=== PATIENT | male | born 1940 | race Asian ===

== ENCOUNTER 2019-01-08 16:51 | Inpatient (IN) | payer OTHER ==
[~2019-01-08] VITALS: Ht 141 cm; Wt 78.5 kg
[2019-01-08 18:45] VITALS: BP 176/86; PULSE 81; RESP 16
[2019-01-08 20:00] VITALS: BP 160/74; PULSE 89; RESP 18
[2019-01-08] MEDS ORDERED: AMLO5TAB4 PO (20:40)
[2019-01-08] MEDS ORDERED: ONDANSETRON 4 MG INJ IV PRN (22:30)
[2019-01-08] MEDS ORDERED: ALBUTEROL/IPRATROPIUM (NEB) 3 ML AMP HHN PRN (22:30)
[2019-01-08] MEDS ORDERED: NACL 0.9% 3 ML SYG IV SCH (22:30)
[2019-01-08] MEDS ORDERED: VANCOMYCIN IV PER PHARMACY XX SCH (22:30)
[2019-01-08] MEDS ORDERED: ACETAMINOPHEN 325 MG TAB PO PRN (22:30)
[2019-01-09] MEDS: ACYCLOVIR 500 MG in DEXTROSE 5% 100 ML IVPB SCH ×4 (00:29→21:42)
[2019-01-09] MEDS ORDERED: VANCOMYCIN HCL 1.5 GM in SOD CHLORIDE 0.9% 250 ML IVPB ONE (01:00)
[2019-01-09 01:26] VITALS: BP 147/70; PULSE 89; RESP 18
--- NOTE | 2019-01-09 06:25 | HP ---
Date/Time of Note Date/Time of Note DATE: 01/09/19 TIME: : Assessment/Plan VTE Prophylaxis Risk score (from Ns)>0 risk: 3 SCD applied (from Ns): Yes Pharmacological prophylaxis: other Lines/Catheters IV Catheter Type (from Nrsg): Peripheral IV Assessment/Plan Assessment/Plan 1. Right periorbital infection/swelling, secondary to shingles was likely superimposed bacterial cellulitis -Patient was evaluated by ophthalmology prior to transfer to [facility] who documented that no corneal involvement and a normal optic nerve exam -will continue acyclovir and vancomycin per recommendation -will culture -ID consult 2. Hypertension: Continue Norvasc. Adjust as needed HPI/ROS Admit Date/Time Admit Date/Time January 08, 2019 at 18:45 Hx of Present Illness This is a 78-year-old male with a history of hypertension and BPH who initially presented to an outside hospital complaining of right eye swelling and pain. Patient was initially seen [facility] 2 days ago and was given erythromycin ointment and Keflex. He was then seen by ophthalmology who started him on acyclovir for likely shingles. Patient went to [place] yesterday. CT shows moderate right periorbital soft tissue swelling. He was evaluated by ophthalmology who also felt that this was from shingles. They also documented saying that no corneal involvement and a normal optic nerve exam. He was treated with acyclovir and vancomycin. Patient was transferred to [facility] for insurance reason. PMH/Family/Social Past Medical History Past Medical History Medical History: other (See HPI) Past Surgical History Past Surgical Hx: other (See HPI) Family History Significant Family History: no pertinent family hx Social History Alcohol Use: none Smoking Status: Never smoker Drug Use: none Exam Constitutional: alert, oriented, well developed Head: normocephalic, atraumatic Eyes: EOMI, PERRL Respiratory: clear to auscultation, normal air movement Cardiovascular: regular rate and rhythm, nl pulses Gastrointestinal: soft, non-tender Extremities: normal pulses Medications Current Medications IV Flush (NS 3 ml) 3 ml PER PROTOCOL IV ; Start 01/08/19 at 22:30 Ondansetron HCl (Zofran Inj) 4 mg Q6H PRN IV NAUSEA/VOMITING; Start 01/08/19 at 22:30 Acetaminophen (Tylenol Tab) 650 mg Q6H PRN PO .PAIN 1-3 OR TEMP; Start 01/08/19 at 22:30 Albuterol/ Ipratropium (Duoneb) 3 ml Q2H RESP THERAPY PRN HHN SHORTNESS OF BREATH; Start 01/08/19 at 22:30 Acyclovir 500 mg/ Dextrose 100 ml @ 100 mls/hr Q8 IVPB Last administered on 01/09/19at 05:43; Admin Dose 100 MLS/HR; Start 01/08/19 at 22:30 Vancomycin HCl (Vanco Iv Per Pharmacy) VANCOMYCIN PER PHARMACY PER PROTOCOL XX ; Start 01/08/19 at 22:30 Amlodipine Besylate (Norvasc) 5 mg DAILY PO ; Start 01/09/19 at 09:00 Coded Allergies: No Known Allergy (Unverified , 01/08/19) Social History Smoking Status: Current every day smoker Exam/Review of Systems Vital Signs Vitals Vital Signs Date Temp Pulse Resp B/P (MAP) Pulse Ox O2 O2 Flow FiO2 Time Delivery Rate 01/09/19 97.8 89 18 147/70 97 Room Air 01:26 (95) Intake and Output 01/08/19 01/08/19 01/09/19 1515:00 23:00 07:00 IntakeIntake Total 120 ml 100 ml BalanceBalance 120 ml 100 ml MACK OCONNELL MD January 09, 2019 06:24
[2019-01-09 07:30] VITALS: BP 139/73; PULSE 87; RESP 16
[2019-01-09] MEDS: AMLODIPINE 5 MG TAB PO SCH (09:41)
[2019-01-09] MEDS: AMPICILLIN/SULB 3 GM/NS (PMX) 100 ML IVPB SCH ×2 (11:20→16:00)
[2019-01-09] MEDS ORDERED: ARTIFICIAL TEARS 15 ML OPH BOTH EYES PRN (13:00)
--- NOTE | 2019-01-09 13:04 | PN ---
Date/Time of Note Date/Time of Note DATE: 01/09/19 TIME: 13:02 Assessment/Plan VTE Prophylaxis Risk score (from Ns)>0 risk: 4 SCD applied (from Ns): Yes Pharmacological prophylaxis: NA/contraindicated Pharm contraindication: low risk/ambulating Lines/Catheters IV [facility] Type [facility]from [facility] Peripheral IV Urinary Cath still in place: No Assessment/Plan Hospital Course SUBJECTIVE: Patient with no acute discomfort. He continues to have right orbital edema but no pain. Conjunctiva is red. OBJECTIVE: Vital signs-see below PHYSICAL EXAM: Constitutional: Adequately built,not in acute distress. HEENT: Head atraumatic and normocephalic. Eyes: Significant periorbital/UPPER LOWER EYE LID edema.Conjunctival redness/pus.DIANA.no diplopia/visual field impairment. Herpetic lesion on rt forehead. NECK: Supple without lymph node. CHEST: Clear and good breath sounds equally. No wheezing. No rhonchi. HEART: S1, S2. Regular rate and rhythm. ABDOMEN: Soft/non tender with no rebound tenderness. Bowel sounds were present. EXTREMITIES: No cyanosis, clubbing or edema. NEUROLOGIC: Alert and oriented x3. No focal deficit. No sensory deficit. PSYCHOSOCIAL: No signs of depression. INTEGUMENTARY: No open wounds. ASSESSMENT AND PLAN:78 yo M w/htn transferred from outside hospital for inpatient management of shingles and periorbital edema involving right eye.. Shingles V1 -No vision impairment -s/p ophthalmology evaluation with no corneal involvement identified. -Eyedrops with addition of moxifloxacin secondary to superficial bacterial infection -Acyclovir/antibiotics for superficial bacterial infection -ID consult -HSV lab -Isolation Preseptal cellulitis/sinusitis 2/2 shingles -Patient with significant periorbital edema, will try prednisone 80 mg no tape ring course -Continue unasyn - CT from outside hospital noted Hypertension -Adequately controlled with calcium channel fatimah Dyslipidemia -Diet changes advised with repeat labs as outpatient. DVT prophylaxis: SCDs/ambulation Disposition: Continue current management. Await for clinical improvement. Patient was seen in collaboration with Result Diagram: 01/09/19 0716 01/09/19 0716 Results 24hrs Laboratory Tests Test 01/09/19 07:16 White Blood Count 7.5 Red Blood Count 5.08 Hemoglobin 16.1 Hematocrit 46.5 Mean Corpuscular Volume 91.5 Mean Corpuscular Hemoglobin 31.7 Mean Corpuscular Hemoglobin Concent 34.6 Red Cell Distribution Width 11.9 Platelet Count 208 Mean Platelet Volume 8.5 Immature Granulocytes % 0.100 Neutrophils % Segmented Neutrophils % (Manual) 39 Band Neutrophils % (Manual) 5 H Lymphocytes % Lymphocytes % (Manual) 42 Reactive Lymphocytes % (Manual) 3 H Monocytes % Monocytes % (Manual) 9 Eosinophils % Eosinophils % (Manual) 1 Basophils % Basophils % (Manual) 1 Nucleated Red Blood Cells % 0.0 Immature Granulocytes # 0.010 Neutrophils # Neutrophils # (Manual) 2.9 Band Neutrophils # 0.3 Lymphocytes (Manual) 3.1 H Lymphocytes # Reactive Lymphocytes # 0.2 H Monocytes # Monocytes # (Manual) 0.6 Eosinophils # Basophils # Basophils # (Manual) 0.0 Nucleated Red Blood Cells # Platelet Estimate NORMAL Anisocytosis 1+ Macrocytosis 1+ Sodium Level 139 Potassium Level 3.9 Chloride Level 99 Carbon Dioxide Level 32 H Anion Gap 8 Blood Urea Nitrogen 12 Creatinine 1.08 Est Glomerular Filtrat Rate mL/min Glucose Level 110 Hemoglobin A1c 5.6 Calcium Level 8.8 Phosphorus Level 3.3 Magnesium Level 2.3 Total Bilirubin 0.7 Direct Bilirubin 0.00 Indirect Bilirubin 0.7 Aspartate Amino Transf (AST/SGOT) 43 Alanine Aminotransferase (ALT/SGPT) 30 Alkaline Phosphatase 53 Total Protein 7.8 Albumin 4.2 Globulin 3.60 H Albumin/Globulin Ratio 1.16 Triglycerides Level 143 Cholesterol Level 216 H LDL Cholesterol, Calculated 152 HDL Cholesterol 35 Cholesterol/HDL Ratio 6.1 Exam/Review of Systems Exam Vitals Vital Signs Date Temp Pulse Resp B/P (MAP) Pulse Ox O2 O2 Flow FiO2 Time Delivery Rate 01/09/19 99.2 87 16 139/73 95 Room Air 07:30 (95) Intake and Output 01/08/19 01/08/19 01/09/19 1515:00 23:00 07:00 IntakeIntake Total 120 ml 220 ml BalanceBalance 120 ml 220 ml Results Results 24hrs Laboratory Tests Test 01/09/19 07:16 White Blood Count 7.5 Red Blood Count 5.08 Hemoglobin 16.1 Hematocrit 46.5 Mean Corpuscular Volume 91.5 Mean Corpuscular Hemoglobin 31.7 Mean Corpuscular Hemoglobin Concent 34.6 Red Cell Distribution Width 11.9 Platelet Count 208 Mean Platelet Volume 8.5 Immature Granulocytes % 0.100 Neutrophils % Segmented Neutrophils % (Manual) 39 Band Neutrophils % (Manual) 5 H Lymphocytes % Lymphocytes % (Manual) 42 Reactive Lymphocytes % (Manual) 3 H Monocytes % Monocytes % (Manual) 9 Eosinophils % Eosinophils % (Manual) 1 Basophils % Basophils % (Manual) 1 Nucleated Red Blood Cells % 0.0 Immature Granulocytes # 0.010 Neutrophils # Neutrophils # (Manual) 2.9 Band Neutrophils # 0.3 Lymphocytes (Manual) 3.1 H Lymphocytes # Reactive Lymphocytes # 0.2 H Monocytes # Monocytes # (Manual) 0.6 Eosinophils # Basophils # Basophils # (Manual) 0.0 Nucleated Red Blood Cells # Platelet Estimate NORMAL Anisocytosis 1+ Macrocytosis 1+ Sodium Level 139 Potassium Level 3.9 Chloride Level 99 Carbon Dioxide Level 32 H Anion Gap 8 Blood Urea Nitrogen 12 Creatinine 1.08 Est Glomerular Filtrat Rate mL/min Glucose Level 110 Hemoglobin A1c 5.6 Calcium Level 8.8 Phosphorus Level 3.3 Magnesium Level 2.3 Total Bilirubin 0.7 Direct Bilirubin 0.00 Indirect Bilirubin 0.7 Aspartate Amino Transf (AST/SGOT) 43 Alanine Aminotransferase (ALT/SGPT) 30 Alkaline Phosphatase 53 Total Protein 7.8 Albumin 4.2 Globulin 3.60 H Albumin/Globulin Ratio 1.16 Triglycerides Level 143 Cholesterol Level 216 H LDL Cholesterol, Calculated 152 HDL Cholesterol 35 Cholesterol/HDL Ratio 6.1 Medications Medication Current Medications IV Flush (NS 3 ml) 3 ml PER PROTOCOL IV ; Start 01/08/19 at 22:30 Ondansetron HCl (Zofran Inj) 4 mg Q6H PRN IV NAUSEA/VOMITING; Start 01/08/19 at 22:30 Acetaminophen (Tylenol Tab) 650 mg Q6H PRN PO .PAIN 1-3 OR TEMP; Start 01/08/19 at 22:30 Albuterol/ Ipratropium (Duoneb) 3 ml Q2H RESP THERAPY PRN HHN SHORTNESS OF BR EATH; Start 01/08/19 at 22:30 Acyclovir 500 mg/ Dextrose 100 ml @ 100 mls/hr Q8 IVPB Last administered on 01/09/19at 05:43; Admin Dose 100 MLS/HR; Start 01/08/19 at 22:30 Vancomycin HCl (Vanco Iv Per Pharmacy) VANCOMYCIN PER PHARMACY PER PROTOCOL XX ; Start 01/08/19 at 22:30 Amlodipine Besylate (Norvasc) 5 mg DAILY PO Last administered on 01/09/19at 09:41; Admin Dose 5 MG; Start 01/09/19 at 09:00 Ampicillin Sodium/ Sulbactam Sodium 100 ml @ 100 mls/hr Q8H IVPB Last administered on 01/09/19at 11:20; Admin Dose 100 MLS/HR; Start 01/09/19 at 09:00 RONAK JOY NP January 09, 2019 13:04
[2019-01-09] MEDS: predniSONE 20 MG TAB PO SCH (13:46)
[2019-01-09] MEDS: ERYTHROMYCIN 2% 60 ML TOPICAL SOL TOP SCH ×2 (14:00→21:00)
[2019-01-09 14:10] VITALS: BP 163/77; PULSE 81; RESP 16
[2019-01-09] MEDS: MOXIFLOXACIN 0.5% 3 ML OPH RIGHT EYE SCH ×2 (16:00→21:42)
--- NOTE | 2019-01-09 19:58 | PN ---
DATE: 01/08/2019 TYPE OF CONSULTATION: Infectious disease. REQUESTING PHYSICIAN: Gilma Rodriguez NP Thank you Gilma for this consultation. HISTORY OF PRESENT ILLNESS: This is a 78-year-old man who was admitted with periorbital swelling, drainage and lesions extending up to his head line on the right. Per report, he was seen by ophthalmology prior to transferring to [facility]. There was no documented corneal involvement and there was a normal optical nerve exam. The patient is currently on oral prednisone, Unasyn, acyclovir and vancomycin. He is also getting Vigamox eyedrops and artificial tears. PAST MEDICAL HISTORY: Significant for hypertension, dyslipidemia and chronic tobacco use. SOCIAL HISTORY: No illicits. No alcohol. REVIEW OF SYSTEMS: As per history of present illness. PHYSICAL EXAMINATION: GENERAL: This is well-nourished, well-developed elderly man who is alert, in no distress. HEENT: Head atraumatic, normocephalic. The patient has right eyelid and periorbital swelling. He unable to open eye, but does not have any pain. He does have crusting lesions extending from his eyebrow up to his head. Buccal mucosa dry, no oral lesions. NECK: Supple. CHEST: Rise symmetrical. Breath sounds clear. HEART: S1, S2. ABDOMEN: Soft, bowel sounds present. EXTREMITIES: Without cyanosis. DIAGNOSTIC IMPRESSION: This is a 78-year-old man admitted with right facial herpes zoster with possible superimposed cellulitis. He was evaluated by ophthalmology already. It does not appear that he has herpes ophthalmicus. He is on appropriate antibiotic regimen which we will continue for now. Await for clinical improvement. Discussed with Dr. Still who is covering for Dr. Toledo. Dictated By: GWENDOLYN ADAMS LEGAL ADVISOR for [employer] Conf#: [id number] DID#: [id number] MTDJanice
[2019-01-09 20:00] VITALS: BP 166/73; PULSE 83; RESP 18
[2019-01-10] MEDS: AMPICILLIN/SULB 3 GM/NS (PMX) 100 ML IVPB SCH ×3 (01:42→16:53)
[2019-01-10 02:00] VITALS: BP 160/71; PULSE 80; RESP 19
[2019-01-10] MEDS: VANCOMYCIN HCL 1.5 GM in SOD CHLORIDE 0.9% 250 ML IVPB SCH (03:52)
[2019-01-10] MEDS: ACYCLOVIR 500 MG in DEXTROSE 5% 100 ML IVPB SCH ×3 (06:24→22:06)
[2019-01-10 08:00] VITALS: BP 172/80; PULSE 79; RESP 20
[2019-01-10] MEDS: AMLODIPINE 5 MG TAB PO SCH (08:54)
[2019-01-10] MEDS: predniSONE 20 MG TAB PO SCH (08:54)
[2019-01-10] MEDS: MOXIFLOXACIN 0.5% 3 ML OPH RIGHT EYE SCH ×3 (08:54→20:54)
[2019-01-10 09:30] VITALS: BP 163/75; PULSE 65; RESP 19
[2019-01-10] MEDS ORDERED: AMLODIPINE 5 MG TAB PO ONE (12:00)
[2019-01-10 12:28] VITALS: BP 172/69
[2019-01-10] MEDS: ERYTHROMYCIN 2% 60 ML TOPICAL SOL TOP SCH ×2 (12:30→21:05)
--- NOTE | 2019-01-10 12:36 | PN ---
Date/Time of Note Date/Time of Note DATE: 01/10/19 TIME: 12:31 Assessment/Plan VTE Prophylaxis Risk score (from Ns)>0 risk: 4 SCD applied (from Ns): Yes Pharmacological prophylaxis: NA/contraindicated Pharm contraindication: low risk/ambulating Lines/Catheters IV [facility] Saline Lock Urinary Cath still in place: No Assessment/Plan Hospital Course SUBJECTIVE: Patient with significant improvement in upper/lower eyelid swelling. Patient with no vision changes. No diplopia. OBJECTIVE: Vital signs-see below PHYSICAL EXAM: Constitutional: Adequately built,not in acute distress. HEENT: Head atraumatic and normocephalic. Eyes: Significant periorbital/UPPER LOWER EYE LID edema-RESOLVING.Conjunctival redness/pus.DIANA.no diplopia/visual field impairment. Herpetic lesion on rt forehead. NECK: Supple without lymph node. CHEST: Clear and good breath sounds equally. No wheezing. No rhonchi. HEART: S1, S2. Regular rate and rhythm. ABDOMEN: Soft/non tender with no rebound tenderness. Bowel sounds were present. EXTREMITIES: No cyanosis, clubbing or edema. NEUROLOGIC: Alert and oriented x3. No focal deficit. No sensory deficit. PSYCHOSOCIAL: No signs of depression. INTEGUMENTARY: No open wounds. ASSESSMENT AND PLAN:78 yo M w/htn transferred from outside hospital for inpatient management of shingles and periorbital edema involving right eye.. Shingles V1/HSVII -Significant clinical improvement -No vision impairment -s/p ophthalmology evaluation with no corneal involvement identified. -Continue Vigamox eyedrops/acyclovir/antibiotics for superficial bacterial infection -ID consult -HSV lab -Isolation Preseptal cellulitis/sinusitis 2/2 shingles -Patient with significant periorbital edema W/steroid course we will continue for a total 7-day course -Continue [id number] soon Hypertension -This more control. Will increase amlodipine to 10 mg. Dyslipidemia -Diet changes advised with repeat labs as outpatient. DVT prophylaxis: SCDs/ambulation Disposition: Overall patient with significant clinical improvement. Right eyelid swelling is resolving. Continue current regimen with de-escalation of antibiotic and DC planning in 24 hours. Patient was seen in collaboration with Result Diagram: 01/09/19 0716 01/09/19 0716 Exam/Review of Systems Exam Vitals Vital Signs Date Temp Pulse Resp B/P (MAP) Pulse Ox O2 O2 Flow FiO2 Time Delivery Rate 01/10/19 98.6 80 19 160/71 96 02:00 (100) 01/09/19 Room Air 14:10 Intake and Output 01/09/19 01/09/19 01/10/19 1515:00 23:00 07:00 IntakeIntake Total 740 ml 550 ml 350 ml OutputOutput Total 600 ml BalanceBalance 740 ml -50 ml 350 ml Medications Medication Current Medications IV Flush (NS 3 ml) 3 ml PER PROTOCOL IV ; Start 01/08/19 at 22:30 Ondansetron HCl (Zofran Inj) 4 mg Q6H PRN IV NAUSEA/VOMITING; Start 01/08/19 at 22:30 Acetaminophen (Tylenol Tab) 650 mg Q6H PRN PO .PAIN 1-3 OR TEMP; Start 01/08/19 at 22:30 Albuterol/ Ipratropium (Duoneb) 3 ml Q2H RESP THERAPY PRN HHN SHORTNESS OF BREATH; Start 01/08/19 at 22:30 Acyclovir 500 mg/ Dextrose 100 ml @ 100 mls/hr Q8 IVPB Last administered on 01/10/19at 06:24; Admin Dose 100 MLS/HR; Start 01/08/19 at 22:30 Vancomycin HCl (Vanco Iv Per Pharmacy) VANCOMYCIN PER PHARMACY PER PROTOCOL XX ; Start 01/08/19 at 22:30 Ampicillin Sodium/ Sulbactam Sodium 100 ml @ 100 mls/hr Q8H IVPB Last administered on 01/10/19at 08:54; Admin Dose 100 MLS/HR; Start 01/09/19 at 09:00 Prednisone (Prednisone) 80 mg DAILY PO Last administered on 01/10/19at 08:54; Admin Dose 80 MG; Start 01/09/19 at 12:30; Stop 01/16/19 at 12:29 Eye Lubricant (Artificial Tears Oph) 2 drop Q6H PRN BOTH EYES DRY EYES; Start 01/09/19 at 13:00 Moxifloxacin HCl (Vigamox) 1 drop TID RIGHT EYE Last administered on 01/10/19at 08:54; Admin Dose 1 DROP; Start 01/09/19 at 14:00 Erythromycin (Erythromycin 2% Topical Cira) 1 applic BID TOP ; Start 01/09/19 at 14:00 Vancomycin HCl 1.5 gm/Sodium Chloride 250 ml @ 83.333 mls/ hr Q24H IVPB Last administered on 01/10/19at 03:52; Admin Dose 83.333 MLS/HR; Start 01/10/19 at 03:00 Amlodipine Besylate (Norvasc) 10 mg DAILY PO ; Start 01/11/19 at 09:00 RONAK JOY NP January 10, 2019 12:36
[2019-01-10 15:29] VITALS: BP 138/61; PULSE 80; RESP 20
--- NOTE | 2019-01-10 16:19 | CONS ---
Assessment/Plan Assessment/Plan Hospital Course (Demo Recall) Patient is alert feels good wounds look much better periorbital swelling also much better patient is able to open right eye. PHYSICAL EXAMINATION: GENERAL: This is well-nourished, well-developed elderly man who is alert, in no distress. HEENT: Head atraumatic, normocephalic. The patient has right eyelid and periorbital swelling. He unable to open eye, but does not have any pain. He does have crusting lesions extending from his eyebrow up to his head. Buccal mucosa dry, no oral lesions. NECK: Supple. CHEST: Rise symmetrical. Breath sounds clear. HEART: S1, S2. ABDOMEN: Soft, bowel sounds present. EXTREMITIES: Without cyanosis. Assessment: Facial herpes zoster with superimposed cellulitis Plan: Slowly improving, anticipate discharge on oral acyclovir for 7-10 more days with eyedrops as prescribed per ophthalmology Consultation Date/Type/Reason Admit Date/Time January 08, 2019 at 18:45 Initial Consult Date Type of Consult id Date/Time of Note DATE: 01/10/19 TIME: 16:18 Exam/Review of Systems Exam Vitals Vital Signs Date Temp Pulse Resp B/P (MAP) Pulse Ox O2 O2 Flow FiO2 Time Delivery Rate 01/10/19 98.0 80 20 138/61 96 15:29 (86) 01/09/19 Room Air 14:10 Intake and Output 01/09/19 01/09/19 01/10/19 1515:00 23:00 07:00 IntakeIntake Total 740 ml 550 ml 350 ml OutputOutput Total 600 ml BalanceBalance 740 ml -50 ml 350 ml Results Result Diagram: 01/09/19 0716 01/09/19 0716 Medications Medication Current Medications IV Flush (NS 3 ml) 3 ml PER PROTOCOL IV ; Start 01/08/19 at 22:30 Ondansetron HCl (Zofran Inj) 4 mg Q6H PRN IV NAUSEA/VOMITING; Start 01/08/19 at 22:30 Acetaminophen (Tylenol Tab) 650 mg Q6H PRN PO .PAIN 1-3 OR TEMP; Start 01/08/19 at 22:30 Albuterol/ Ipratropium (Duoneb) 3 ml Q2H RESP THERAPY PRN HHN SHORTNESS OF BREATH; Start 01/08/19 at 22:30 Acyclovir 500 mg/ Dextrose 100 ml @ 100 mls/hr Q8 IVPB Last administered on 01/10/19 14:23; Admin Dose 100 MLS/HR; Start 01/08/19 at 22:30 Vancomycin HCl (Vanco Iv Per Pharmacy) VANCOMYCIN PER PHARMACY PER PROTOCOL XX ; Start 01/08/19 at 22:30 Ampicillin Sodium/ Sulbactam Sodium 100 ml @ 100 mls/hr Q8H IVPB Last admin istered on 01/10/19 08:54; Admin Dose 100 MLS/HR; Start 01/09/19 at 09:00 Prednisone (Prednisone) 80 mg DAILY PO Last administered on 01/10/19 08:54; Admin Dose 80 MG; Start 01/09/19 at 12:30; Stop 01/16/19 at 12:29 Eye Lubricant (Artificial Tears Oph) 2 drop Q6H PRN BOTH EYES DRY EYES; Start 01/09/19 at 13:00 Moxifloxacin HCl (Vigamox) 1 drop TID RIGHT EYE Last administered on 01/10/19at 12:29; Admin Dose 1 DROP; Start 01/09/19 at 14:00 Erythromycin (Erythromycin 2% Topical Cira) 1 applic BID TOP Last administered on 01/10/19 12:30; Admin Dose 1 APPLIC; Start 01/09/19 at 14:00 Vancomycin HCl 1.5 gm/Sodium Chloride 250 ml @ 83.333 mls/ hr Q24H IVPB Last administered on 01/10/19 03:52; Admin Dose 83.333 MLS/HR; Start 01/10/19 at 03:00 Amlodipine Besylate (Norvasc) 10 mg DAILY PO ; Start 01/11/19 at 09:00 Miscellaneous Information (*Rx Drug Level Order Reminder*) VANCOMYCIN TROUGH AT 0200 0200 ONCE XX ; Start 01/11/19 at 02:00; Stop 01/11/19 at 02:01 GWENDOLYN ADAMS NP January 10, 2019 16:19
[2019-01-10 20:00] VITALS: BP 163/72; PULSE 83; RESP 18
[2019-01-10] MEDS ORDERED: ERYTHROMYCIN 2% 60 ML TOPICAL SOL TOP SCH (22:24)
[2019-01-11] MEDS: AMPICILLIN/SULB 3 GM/NS (PMX) 100 ML IVPB SCH ×3 (01:05→17:02)
[2019-01-11 02:00] VITALS: BP 150/69; PULSE 81; RESP 17
[2019-01-11] MEDS: VANCOMYCIN HCL 1.5 GM in SOD CHLORIDE 0.9% 250 ML IVPB SCH (03:10)
[2019-01-11] MEDS: ACYCLOVIR 500 MG in DEXTROSE 5% 100 ML IVPB SCH ×2 (06:14→13:03)
[2019-01-11 08:00] VITALS: BP 157/71; PULSE 54; RESP 20
[2019-01-11] MEDS: predniSONE 20 MG TAB PO SCH (08:14)
[2019-01-11] MEDS: MOXIFLOXACIN 0.5% 3 ML OPH RIGHT EYE SCH ×2 (08:16→13:03)
[2019-01-11] MEDS ORDERED: AMLODIPINE 10 MG TAB PO SCH (09:00)
--- NOTE | 2019-01-11 11:02 | PDOCDIS ---
Discharge Instructions CONDITION [id number] Patient Condition: [id number] Stable HOME CARE INSTRUCTIONS: [id number] Diet Instructions: [id number] Regular FOLLOW UP/APPOINTMENTS Follow-up Plan Follow up with primary care physician in 1 week. Patient needs ophthalmology follow-up in 1 week. RONAK JOY NP January 11, 2019 11:02
[2019-01-11] MEDS ORDERED: PRED20TA PO (11:09)
[2019-01-11] MEDS ORDERED: [UNRECOGNIZED DRUG - OTHER] TOP (11:09)
[2019-01-11] MEDS ORDERED: VIGA RIGHT EYE (11:09)
[2019-01-11] MEDS ORDERED: ACYC400T2 PO (11:09)
[2019-01-11] MEDS ORDERED: AMLO-147 PO (11:09)
[2019-01-11] MEDS ORDERED: CIPR500T4 PO (11:09)
--- NOTE | 2019-01-11 11:16 | DS ---
Date/Time of Note Date/Time of Note DATE: 01/11/19 TIME: 11:14 Discharge Summary Admission/Discharge Info Admit Date/Time January 08, 2019 at 18:45 Discharge Date/Time Discharge Diagnosis Shingles V1/HSVII Preseptal cellulitis/sinusitis 2/2 shingles.Resolved Hypertension Dyslipidemia Patient Condition: Stable Consults Dr. Toledo, infectious disease Hospital Course 78 yo M w/htn transferred from outside hospital for inpatient management of shingles and periorbital edema involving right eye..Patient Had ophthalmology evaluation at transferring facility in [facility] with no corneal involvement identified. CT brain was unremarkable other than orbital soft tissue swelling. Serology positive for HSV-2. She did responded well to prednisone 80 mg daily along with Acyclovir and Unasyn. Preseptal cellulitis resolved almost. She is with no vision impairment, diplopia or other symptoms. He has been also given Vigamox eyedrops. Patient was being followed by infectious disease systems management consultant. I cultures grew staph which is sensitive to Cipro. At this time, patient is feeling back to baseline and there is no further swelling on his right eye. Will discharge patient on 7-day acyclovir, Cipro, prednisone weaning course with outpatient PCP follow-up. Hospitalization was also noted for elevated blood pressure requiring titration of his home antihypertensives. Approximately 60-minute was spent on coordinating the discharge on this patient. Home Meds Active Scripts Acyclovir* (Acyclovir*) 400 Mg Tablet, 400 MG PO QID for 7 Days, #28 TAB Prov:JOY,RONAK V. EMBEDDED SOFTWARE ARCHITECT 01/11/19 Ciprofloxacin Hcl* (Ciprofloxacin Hcl*) 500 Mg Tablet, 500 MG PO BID, #14 TAB Prov:JOY,RONAK V. EMBEDDED SOFTWARE ARCHITECT 01/11/19 Erythromycin (ERYTHROMYCIN 2% SOLUTION) 1 Applic Soln, 1 APPLIC TOP BID, #1 TUB Apply to lesions on face Prov:JOY,RONAK V. EMBEDDED SOFTWARE ARCHITECT 01/11/19 Prednisone* (Prednisone*) 20 Mg Tab, 80 MG PO DAILY for 5 Days, #20 TAB Prov:JOY,RONAK V. EMBEDDED SOFTWARE ARCHITECT 01/11/19 Moxifloxacin Hcl* (Vigamox*) 0.5% - 3 Ml Opht, 1 DROP RIGHT EYE TID for 5 Days, #1 BOTTLE Prov:JOY,RONAK V. EMBEDDED SOFTWARE ARCHITECT 01/11/19 Amlodipine Besylate* (Amlodipine Besylate*) 10 Mg Tablet, 10 MG PO DAILY, #30 TAB Prov:RONAK JOY NP 01/11/19 Reported Medications Amlodipine Besylate* (Norvasc*) 5 Mg Tablet, 5 MG PO DAILY, TAB 01/08/19 Follow-up Plan Follow up with primary care physician in 1 week. Primary Care Provider Not On Staff Doctor Pending Labs Laboratory Tests Test 01/11/19 02:19 Vancomycin Level Trough 9.0 ug/ml (10.0-20.0) RONAK JOY NP January 11, 2019 11:16
[2019-01-11 14:00] VITALS: BP 164/58; PULSE 88; RESP 18
[2019-01-11] MEDS ORDERED: VANCOMYCIN 1 GM 250 ML IVPB SCH (15:00)
--- NOTE | 2019-01-11 15:03 | CONS ---
Assessment/Plan Assessment/Plan Hospital Course (Demo Recall) Patient is alert feels better, right eye and facial lesions look much better PHYSICAL EXAMINATION: GENERAL: This is well-nourished, well-developed elderly man who is alert, in no distress. HEENT: Head atraumatic, normocephalic. The patient has right eyelid and periorbital swelling. He unable to open eye, but does not have any pain. He does have crusting lesions extending from his eyebrow up to his head. Buccal mucosa dry, no oral lesions. NECK: Supple. CHEST: Rise symmetrical. Breath sounds clear. HEART: S1, S2. ABDOMEN: Soft, bowel sounds present. EXTREMITIES: Without cyanosis. Assessment: Facial herpes zoster with superimposed cellulitis and right eye conjunctivitis with culture grew oxacillin sensitive staph aureus Plan: Patient is doing much better, pending discharge home on on oral acyclovir for 7 more days and oral Keflex, continue eyedrops, follow with ophthalmology as needed Consultation Date/Type/Reason Admit Date/Time January 08, 2019 at 18:45 Initial Consult Date Type of Consult id Date/Time of Note DATE: 01/11/19 TIME: 15:01 Exam/Review of Systems Exam Vitals Vital Signs Date Temp Pulse Resp B/P (MAP) Pulse Ox O2 O2 Flow FiO2 Time Delivery Rate 01/11/19 98.8 54 20 157/71 98 08:00 (99) 01/09/19 Room Air 14:10 Intake and Output 01/10/19 01/10/19 01/11/19 1515:00 23:00 07:00 IntakeIntake Total 790 ml 550 ml 450 ml BalanceBalance 790 ml 550 ml 450 ml Results Result Diagram: 01/09/19 0716 01/09/19 0716 Results 24hrs Laboratory Tests Test 01/11/19 02:19 Vancomycin Level Trough 9.0 L Medications Medication Current Medications IV Flush (NS 3 ml) 3 ml PER PROTOCOL IV ; Start 01/08/19 at 22:30 Ondansetron HCl (Zofran Inj) 4 mg Q6H PRN IV NAUSEA/VOMITING; Start 01/08/19 at 22:30 Acetaminophen (Tylenol Tab) 650 mg Q6H PRN PO .PAIN 1-3 OR TEMP; Start 01/08/19 at 22:30 Albuterol/ Ipratropium (Duoneb) 3 ml Q2H RESP THERAPY PRN HHN SHORTNESS OF BREATH; Start 01/08/19 at 22:30 Acyclovir 500 mg/ Dextrose 100 ml @ 100 mls/hr Q8 IVPB Last administered on 01/11/19 13:03; Admin Dose 100 MLS/HR; Start 01/08/19 at 22:30 Vancomycin HCl (Vanco Iv Per Pharmacy) VANCOMYCIN PER PHARMACY PER PROTOCOL XX ; Start 01/08/19 at 22:30 Ampicillin Sodium/ Sulbactam Sodium 100 ml @ 100 mls/hr Q8H IVPB Last administered on 01/11/19 08:15; Admin Dose 100 MLS/HR; Start 01/09/19 at 09:00 Prednisone (Prednisone) 80 mg DAILY PO Last administered on 01/11/19 08:14; Admin Dose 80 MG; Start 01/09/19 at 12:30; Stop 01/16/19 at 12:29 Eye Lubricant (Artificial Tears Oph) 2 drop Q6H PRN BOTH EYES DRY EYES; Start 01/09/19 at 13:00 Moxifloxacin HCl (Vigamox) 1 drop TID RIGHT EYE Last administered on 01/11/19 13:03; Admin Dose 1 DROP; Start 01/09/19 at 14:00 Amlodipine Besylate (Norvasc) 10 mg DAILY PO Last administered on 01/11/19 08:14; Admin Dose 10 MG; Start 01/11/19 at 09:00 Erythromycin (Erythromycin 2% Topical Cira) 1 applic BID TOP Last administered on 01/11/19 08:16; Admin Dose 1 APPLIC; Start 01/10/19 at 22:24 Vancomycin HCl 250 ml @ 125 mls/hr Q12H IVPB ; Start 01/11/19 at 15:00 GWENDOLYN ADAMS NP January 11, 2019 15:03
== END 2019-01-11 18:38 | disposition home or self-care (01) | DRG 125 ==
LOC: PP2 18:45
PROVIDERS: ADMIT Hospitalist; ATTEND Hospitalist
DX: B02.30 Zoster ocular disease, unspecified (principal); L03.213 Periorbital cellulitis; I10 Essential (primary) hypertension; E78.5 Hyperlipidemia, unspecified
CPT/HCPCS: 80053; 80061; 80202; 83036; 83735; 84100; 85025; 86692; 87070; 87081; 87255; J0133; J0295; J3370; J7050; J7512